=== PATIENT | male | born 1960 | race Caucasian/White ===

== ENCOUNTER 2017-07-20 15:03 | Emergency (ER) | payer OTHER ==
--- NOTE | 2017-07-20 15:07 | PDOC ---
History of Present Illness <Tevin Barboza - Last Filed: 07/20/17 16:10> - General History Source: Patient - History of Present Illness Initial Comments: 07/20/17 15:48 The patient is a 56 year old male, with a significant past medical history of asthma and hypertension, who presents to the emergency department with pain to his left ankle today. He denies numbness or tingling to the injured lower extremity. He denies chest pain, shortness of breath, headache and dizziness. He denies fever, chills, nausea, vomit, diarrhea and constipation. He denies dysuria, frequency, urgency and hematuria. Allergies: penicillins Past surgical history: left ankle ORIF <Urvashi Bowman - Last Filed: 07/20/17 16:14> - General Chief Complaint: Injury Stated Complaint: INJURED LEFT ANKLE Time Seen by Provider: 07/20/17 15:07 Past History - Past Medical History Asthma: Yes HTN: Yes - Suicide/Smoking/Psychosocial Hx Smoking History: Never smoked Have you smoked in the past 12 months: No Hx Alcohol Use: No Drug/Substance Use Hx: No Substance Use Type: Alcohol <Tevin Barboza - Last Filed: 07/20/17 16:10> <Urvashi Bowman - Last Filed: 07/20/17 16:14> - Past Medical History Allergies/Adverse Reactions: Allergies Allergy/AdvReac Type Severity Reaction Status Date / Time Penicillins Allergy Intermediate Rash Verified 07/20/17 15:04 Home Medications: Ambulatory Orders Losartan Potassium [Cozaar] 100 mg PO DAILY 11/10/15 Amlodipine Besylate 5 mg PO DAILY 07/20/17 Review of Systems - Review of Systems Able to Perform ROS?: Yes Comments:: 07/20/17 15:48 CONSTITUTIONAL: Absent: fever, chills, diaphoresis, generalized weakness, malaise, loss of appetite HEENT: Absent: rhinorrhea, nasal congestion, throat pain, throat swelling, difficulty swallowing, mouth swelling, ear pain, eye pain, visual Changes CARDIOVASCULAR: Absent: chest pain, syncope, palpitations, irregular heart rate, lightheadedness , peripheral edema RESPIRATORY: Absent: cough, shortness of breath, dyspnea with exertion, orthopnea, wheezing, stridor, hemoptysis GASTROINTESTINAL: Absent: abdominal pain, abdominal distension, nausea, vomiting, diarrhea, constipation, melena, hematochezia GENITOURINARY: Absent: dysuria, frequency, urgency, hesitancy, hematuria, flank pain, genital pain MUSCULOSKELETAL: (+) left ankle pain. no increased edema. Absent: myalgia, SKIN: Absent: rash, itching, pallor HEMATOLOGIC/IMMUNOLOGIC: Absent: easy bleeding, easy bruising, lymphadenopathy, frequent infections ENDOCRINE: Absent: unexplained weight gain, unexplained weight loss, heat intolerance, cold intolerance NEUROLOGIC: Absent: headache, focal weakness or paresthesia, dizziness, unsteady gait, seizure, mental status changes, bladder or bowel incontinence PSYCHIATRIC: Absent: anxiety, depression, suicidal or homicidal ideation, hallucinations <Urvashi Bowman - Last Filed: 07/20/17 16:14> *Physical Exam - Vital Signs Last Vital Signs Temp Pulse Resp BP Pulse Ox 98.5 F 96 H 16 141/98 98 07/20/17 15:04 07/20/17 15:04 07/20/17 15:04 07/20/17 15:04 07/20/17 15:04 - Physical Exam Comments: 07/20/17 15:53 GENERAL: Well developed, well nourished. Awake and alert. No acute distress. HEENT: Normocephalic, atraumatic. PERRLA, EOMI. No conjunctival pallor. Sclera are non- icteric. Moist mucous membranes. Oropharynx is clear. NECK: Supple. Full ROM. No JVD. Carotid pulses 2+ and symmetric, without bruits. No thyromegaly. No lymphadenopathy. CARDIOVASCULAR: Regular rate and rhythm. No murmurs, rubs, or gallops. Distal pulses are 2+ and symmetric. PULMONARY: No evidence of respiratory distress. Lungs clear to auscultation bilaterally. No wheezing, rales or rhonchi. ABDOMINAL: Soft. Non-tender. Non-distended. No rebound or guarding. No organomegaly. Normoactive bowel sounds. MUSCULOSKELETAL Normal range of motion at all joints. No bony deformities or tenderness. No CVA tenderness. EXTREMITIES: (+) LLE: dependent edema chronic and unchanged as per patient as the result of prior distal tib/fib fracture and implanted hardware. Pt complains of pain over the left medial ankle ligaments but not over the site of his prior injury. No distal numbness, tingling, or weakness to the toes. No distal sensory deficits. No point tenderness of malleoli or 5th metatarsal. Achilles tendon intact and strong. Plantar Flexion is strong. No cyanosis. No clubbing. No calf tenderness. SKIN: Warm and dry. Normal capillary refill. No rashes. No jaundice. NEUROLOGICAL: Alert, awake, appropriate. Cranial nerves 2-12 intact. No motor deficits in the upper extremities and lower extremities. Normoreflexic in the upper and lower extremities. Normal speech. Gait is normal without ataxia. PSYCHIATRIC: Cooperative. Good eye contact. Appropriate mood and affect. <Urvashi Bowman - Last Filed: 07/20/17 16:14> ED Treatment Course - RADIOLOGY Radiology Studies Ordered: 07/20/17 16:[address] Barboza Impression: Xray of left ankle demonstrates intact hardware without displacement , no evidence of acute fractures of the distal tibia, fibula, or ankle. <Urvashi Bowman - Last Filed: 07/20/17 16:14> Medical Decision Making - Medical Decision Making 07/20/17 16:10 X-ray: No fracture or hardware intact without displacement Stirrup splint applied. No distal numbness tingling or pain. Good toe movement. Ambulating adequately without assistance. Symptomatic treatment and orthopedic follow-up if pain or swelling persists. <Tevin Barboza - Last Filed: 07/20/17 16:10> *DC/Admit/Observation/Transfer - Discharge Dispostion Admit: No <Tevin Barboza - Last Filed: 07/20/17 16:10> - Attestations Scribe Attestion: 07/20/17 15:54 Documentation prepared by Urvashi Bowman, acting as nuclear medicine medical director for Tevin Melara MD <Urvashi Bowman - Last Filed: 07/20/17 16:14> Diagnosis at time of Disposition: Ankle sprain Qualifiers: Encounter type: initial encounter Involved ligament of ankle: unspecified ligament Laterality: left Qualified Code(s): S93.402A - Sprain of unspecified ligament of left ankle, initial encounter - Discharge Dispostion Disposition: HOME Condition at time of disposition: Improved - Referrals Referrals: Vincent Fraser MD [Staff Physician] - 1 week - Patient Instructions Printed Discharge Instructions: DI for Ankle Sprain Additional Instructions: Rest, ice, elevate, ankle support. Limited weightbearing to prevent muscle weakness. Recheck orthopedist in one week if pain or swelling persists. - Post Discharge Activity Forms/Work/School Notes: Back to Work
[2017-07-20 15:24] VITALS: BP 141/98; PULSE 96; TEMP 98.5; BMI 41.3
== END 2017-07-20 15:51 | disposition home or self-care (01) ==
LOC: FER 15:03
PROC: 2W3RX1Z Immobilization of Left Lower Leg using Splint (ICD-10-PCS; principal; 2017-07-20)
DX: S93.402A Sprain of unspecified ligament of left ankle, initial encounter (principal); X58.XXXA Exposure to other specified factors, initial encounter; Y93.89 Activity, other specified; Y92.9 Unspecified place or not applicable; J45.909 Unspecified asthma, uncomplicated; I10 Essential (primary) hypertension
CPT/HCPCS: 73610-TC-LT; 99282-25

== ENCOUNTER 2018-08-06 17:37 | Emergency (ER) | payer OTHER ==
[2018-08-06 17:44] VITALS: BMI 37.7
--- NOTE | 2018-08-06 18:17 | PDOC ---
History of Present Illness - General Chief Complaint: Blood Pressure Problem Stated Complaint: BLOOD PRESSURE PROBLEM - History of Present Illness Initial Comments: 08/06/18 18:10 Pt. is a 57 M w/ PMHx of HTN presents to the ED for "pounding headache" and high blood pressure. Pt. states he has had a pounding headache for the last 3 hours. Pt. states that he got into an argument with someone and that made his headache worse so he checked his BP at home and found it to be 185/115. Pt. states he took some old BP medications( Losartan 100mg x 1 and Amlodipine 5 mg x 1). Pt. recently lost 65 lbs. and was no longer hypertensive so he was instructed to discontinue his BP medications around 2 weeks ago. Pt. states he was never this hypertensive even prior to the weight loss and before being on medications, his BP was always 130s/90s. Pt. endorses a pounding, constant, throbbing headaches that he feels right behind the eyes. Pt. endorses diffuse abdominal pain and nausea since onset of headache. Pt. endorsed chronic swelling of the lower extremities especially his left leg, on which he had an ORIF performed many years ago. Pt. denies any other symptoms including chest pain, shortness of breath, changes in bowel or urinary habits including pain on urination or defecation, increased or decreased frequency of urination or defecation, hematuria or hematochezia. Tylenol 1,000mg and Head CT ordered to manage pain and r/o intracranial hemorrhage. 08/06/18 19:06 Case signed off to Dr. Amaya. Timing/Duration: 1-3 hours Severity: moderate Associated Symptoms: reports: fever/chills (chills no fever ), headaches, nausea /vomiting. denies: chest pain, cough, diaphoresis, shortness of breath, syncope , weakness Aspirin Received prior to arrival: Yes: no aspirin today Beta Therese Contraindications(Core Measure): Yes: Not Prescribed Past History - Travel Traveled outside of the country in the last 30 days: No Close contact w/someone who was outside of country & ill: No - Past Medical History Allergies/Adverse Reactions: Allergies Allergy/AdvReac Type Severity Reaction Status Date / Time Penicillins Allergy Intermediate Rash Verified 08/06/18 17:44 Home Medications: Ambulatory Orders Losartan Potassium [Cozaar] 100 mg PO DAILY 11/10/15 Amlodipine Besylate 5 mg PO DAILY 07/20/17 Asthma: No (Allergy to cats ) Cardiac Disorders: No Hx Myocardial Infarction: No CVA: No COPD: No CHF: No DVT: No HTN: Yes (taken off meds by pmd) Hypercholesterolemia: No - Surgical History Orthopedic Surgery: Yes (ORIF of left tibia ) - Suicide/Smoking/Psychosocial Hx Smoking History: Never smoked Have you smoked in the past 12 months: No Hx Alcohol Use: No Drug/Substance Use Hx: No Substance Use Type: Alcohol Review of Systems - Review of Systems Able to Perform ROS?: Yes Is the patient limited Hebrew proficient: No Constitutional: No: Symptoms Reported HEENTM: No: Symptoms Reported Respiratory: No: Symptoms reported Cardiac (ROS): No: Symptoms Reported ABD/GI: Yes: Symptoms Reported, Nausea : No: Symptoms Reported, Dysuria, Discharge, Frequency Integumentary: No: Symptoms Reported Neurological: Yes: Headache (frontal lobe, feels behind eyes ). No: Numbness, Weakness, Unsteady Gait, Dizziness Psychiatric: Yes: Stressors Endocrine: No: Symptoms Reported Hematologic/Lymphatic: No: Symptoms Reported *Physical Exam - Vital Signs Last Vital Signs Temp Pulse Resp BP Pulse Ox 98.4 F 76 18 161/113 H 95 08/06/18 17:41 08/06/18 17:41 08/06/18 17:41 08/06/18 17:41 08/06/18 17:41 - Physical Exam General Appearance: Yes: Nourished, Appropriately Dressed, Apparent Distress, Mild Distress, Obese HEENT: positive: EOMI, LEON, Normal ENT Inspection, Normal Voice, Symmetrical, Pharynx Normal, Hearing Grossly Normal. negative: Sinus Tenderness Neck: positive: Trachea midline, Normal Thyroid, Supple. negative: Tender, Carotid bruit, Thyromegaly Respiratory/Chest: positive: Lungs Clear, Normal Breath Sounds. negative: Chest Tender, Respiratory Distress, Accessory Muscle Use, Rapid RR, Crackles, Rales, Wheezing Cardiovascular: positive: Regular Rhythm, Regular Rate, S1, S2, Edema. negative : JVD, Murmur, Tachycardia Vascular Pulses: Dorsalis-Pedis (R): 2+ (RADIAL), Doralis-Pedis (L): 2+ (RADIAL ) Gastrointestinal/Abdominal: positive: Normal Bowel Sounds, Soft, Protuberent. negative: Tender, Distended, Guarding, Rebound, Tenderness Male Genitalia: negative: CVAT Rectal Exam: positive: deferred Musculoskeletal: positive: Normal Inspection. negative: CVA Tenderness Extremity: positive: Normal Capillary Refill, Pelvis Stable, Pedal Edema, Swelling. negative: Tender, Calf Tenderness, Erythema, Inflammation Integumentary: positive: Normal Color, Dry, Warm Neurologic: positive: Fully Oriented, Alert, Normal Response, Motor Strength 5/5 , Respond to painful stimul Moderate Sedation - Procedure Monitoring Vital Signs: Procedure Monitoring Vital Signs Temperature 98.4 F 08/06/18 17:41 Pulse Rate 76 08/06/18 17:41 Respiratory Rate 18 08/06/18 17:41 Blood Pressure 161/113 H 08/06/18 17:41 O2 Sat by Pulse Oximetry (%) 95 08/06/18 17:41 *DC/Admit/Observation/Transfer Diagnosis at time of Disposition: Hypertension Qualifiers: Hypertension type: unspecified Qualified Code(s): I10 - Essential (primary) hypertension Headache Qualifiers: Headache type: unspecified Headache chronicity pattern: acute headache Intractability: not intractable Qualified Code(s): R51 - Headache - Discharge Dispostion Condition at time of disposition: Improved - Referrals - Patient Instructions - Post Discharge Activity
[2018-08-06] MEDS ORDERED: ACETAMINOPHEN 500 MG TABLET (FP) PO ONE (18:18)
[2018-08-06] MEDS ORDERED: ACETAMINOPHEN 325 MG TABLET (FP) ONE (18:25)
--- NOTE | 2018-08-06 18:46 | PDOC ---
Attending Attestation - [facility] HPI: 08/06/18 18:46 The patient is a 57 year old male with a past medical history of HTN here today for evaluation of high blood pressure and headache. The patient reports that he woke up this morning with a headache and describes it as constant, pounding, and localized to the frontal lobe behind the eyes. Patient reports checking his blood pressure after getting into an argument with someone and notes that it was 185/115. He notes taking his blood pressure medication which he had previously stopped taking due to weight loss. He notes having chills, lower left extremity edema (which he attributes to an old ORIF surgery), abdominal pain, and nausea. Patient denies lightheadedness. Denies fever. Denies chest pain, shortness of breath. Denies vomiting, diarrhea. Allergies: penicillin, cats Social history: Patient denies tobacco and drug use. Reports being a social drinker. Surgical history: ORIF lower left extremity PCP: none reported - Physicial Exam PE: 08/06/18 18:47 GENERAL: Well developed, well nourished. Awake and alert. No acute distress. HEENT: Normocephalic, atraumatic. PERRLA, EOMI. No conjunctival pallor. Sclera are non- icteric. Moist mucous membranes. Oropharynx is clear. NECK: Supple. Full ROM. No JVD. Carotid pulses 2+ and symmetric, without bruits. No thyromegaly. No lymphadenopathy. CARDIOVASCULAR: Regular rate and rhythm. No murmurs, rubs, or gallops. Distal pulses are 2+ and symmetric. PULMONARY: No evidence of respiratory distress. Lungs clear to auscultation bilaterally. No wheezing, rales or rhonchi. ABDOMINAL: Soft. Non-tender. Non-distended. No rebound or guarding. No organomegaly. Normoactive bowel sounds. MUSCULOSKELETAL Normal range of motion at all joints. No bony deformities or tenderness. No CVA tenderness. EXTREMITIES: No cyanosis. No clubbing. No edema. No calf tenderness. SKIN: Warm and dry. Normal capillary refill. No rashes. No jaundice. NEUROLOGICAL: Alert, awake, appropriate. Cranial nerves 2-12 intact. No deficits to light touch and temperature in face, upper extremities and lower extremities. No motor deficits in the in face, upper extremities and lower extremities. Normoreflexic in the upper and lower extremities. Normal speech. Toes are down- going bilaterally. Gait is normal without ataxia. PSYCHIATRIC: Cooperative. Good eye contact. Appropriate mood and affect. - Medical Decision Making 08/06/18 18:47 Documentation prepared by JASPER Hanson, acting as medical laboratory technicians for Amy Shane MD. <Prosper Win - Last Filed: 08/06/18 18:46> - Resident Resident Name: Adis Hilton - ED Attending Attestation I have performed the following: I have examined & evaluated the patient, The case was reviewed & discussed with the resident, I agree w/resident's findings & plan, Exceptions are as noted - Medical Decision Making 08/06/18 19:23 57-year-old male presents because of frontal headache and increased blood pressure. He lost 65 pounds and his physician has curtailed his high blood pressure medications. Priors that his to reticulocyte and Norvasc. He denies any chest pain, shortness of breath, acute visual changes, diplopia or field cuts. CAT scan of the head was negative for any acute intracranial pathology, no bleed , no infarct Patient's headache is aggravated by the fact he's had to emotional confrontations today 08/06/18 23:59 he has no focal neuro deficits blood pressure came down with meds and his headache resolved pt discharged home w instructions to see his PCP for further eval of HTN <Amy Shane - Last Filed: 08/07/18 00:03>
--- NOTE | 2018-08-06 19:11 | PDOC ---
*Physical Exam - Vital Signs Last Vital Signs Temp Pulse Resp BP Pulse Ox 98.4 F 76 18 161/113 H 95 08/06/18 17:41 08/06/18 17:41 08/06/18 17:41 08/06/18 17:41 08/06/18 17:41 ED Treatment Course - Medications Given in the ED: ED Medications Discontinued Medications Generic Name Dose Route Start Last Admin Trade Name aMrgret PRN Reason Stop Dose Admin Acetaminophen 1,000 mg 08/06/18 18:18 08/06/18 18:29 Tylenol - PO 08/06/18 18:19 1,000 mg ONCE ONE Administration Medical Decision Making - Medical Decision Making 08/06/18 19:09 Patient signed out by resident Dr. Hilton In short this patient with headache and elevated blood pressure decreased with amlodipine and losartan. ED Course: Patient with negative CT head plan to recheck bp, if maintained will discharge. advise to take amlodipine 5 until can be seen by pcp for htn management 08/06/18 19:30 repeat bp 158/100 *DC/Admit/Observation/Transfer Diagnosis at time of Disposition: Hypertension Qualifiers: Hypertension type: unspecified Qualified Code(s): I10 - Essential (primary) hypertension Headache Qualifiers: Headache type: unspecified Headache chronicity pattern: acute headache Intractability: not intractable Qualified Code(s): R51 - Headache - Discharge Dispostion Disposition: HOME Condition at time of disposition: Fair Decision to Admit order: No - Referrals - Patient Instructions Printed Discharge Instructions: DI for High Blood Pressure, DI for Headache Additional Instructions: You were seen in the ED for complaints of headache and a previously elevated blood pressure. In the ED you were evaluated with imaging and blood pressure monitoring. Your results did not show significant findings and your blood pressure improved. There does not appear to be an acute need for immediate hospitalization. You are advised to follow up with your Primary Care Physician within 1 week. Take your home amlodipine 5mg until you can see your Family Doctor for appropriate bp management. Return to the ED immediately if you experience worsening headache, loss of consciousness, elevated blood pressure, chest pain, shortness of breath, neck pain or stiffness or fever. - Post Discharge Activity
[2018-08-06 19:40] VITALS: BP 146/101; PULSE 89; TEMP 98.6
== END 2018-08-06 19:43 | disposition home or self-care (01) ==
LOC: JER 17:37
DX: I10 Essential (primary) hypertension (principal); Z91.048 Other nonmedicinal substance allergy status; Z88.0 Allergy status to penicillin
CPT/HCPCS: 70450-TC; 99281-25

== ENCOUNTER 2018-08-19 19:38 | Emergency (ER) | payer OTHER ==
[2018-08-19 19:45] VITALS: BP 145/92; PULSE 97; TEMP 98.7; BMI 37.5
== END 2018-08-19 19:48 | disposition left against medical advice (07) ==
LOC: JER 19:38
DX: Z53.21 Procedure and treatment not carried out due to patient leaving prior to being seen by health care provider (principal)
CPT/HCPCS: 99281-25

== ENCOUNTER 2021-03-22 17:12 | Emergency (ER) | payer OTHER ==
[2021-03-22 17:30] VITALS: TEMP 99.2; BMI 38.3
[2021-03-22] MEDS ORDERED: FAMOTIDINE 20 MG/50 ML IVPB 20 MG/50 ML MG IVPB ONE ×2 (17:49→17:50)
[2021-03-22] MEDS ORDERED: SODIUM CHLORIDE 0.9% 1000 ML INFUS.BAG IV ONE (17:50)
[2021-03-22 18:00] LABS: BASO % 1.6 % (0-2.0); EOS % 6.4 % (0-4.5); HEMATOCRIT 46.2 % (35.4-49); HEMOGLOBIN 15.4 GM/dl (11.7-16.9); LYMPH % 24.6 % (8-40); MCH 27.5 pg (25.7-33.7); MCHC 33.5 g/dl (32.0-35.9); MEAN CELL VOLUME 82.4 fl (80-96); MEAN PLT VOLUME 7.6 fl (7.5-11.1); MONO % 10.1 % (3.8-10.2); NEUT % 57.3 % (42.8-82.8); PLATELET COUNT 220 10^3/uL (134-434); RBC 5.61 M/mm3 (4.00-5.60); RDW 12.6 % (11.9-15.9); WHITE BLOOD COUNT 5.5 K/mm3 (4.0-10.8)
[2021-03-22 18:07] LABS: ALBUMIN 4.3 g/dl (3.4-5.0); BILIRUBIN,TOTAL 0.4 mg/dl (0.2-1); CALCIUM 8.8 mg/dl (8.5-10); CREATININE 1.3 mg/dl (0.55-1.3); TOT PROT 6.9 g/dl (6.4-8.2)
[2021-03-22 18:25] LABS: EPITHELIAL CELLS RARE /hpf
[2021-03-22 18:27] VITALS: BP 134/85; PULSE 80
[2021-03-22 19:07] LABS: LIPASE 128 U/L (73-393)
== END 2021-03-22 19:50 | disposition home or self-care (01) ==
LOC: FER 17:12
PROC: 3E033GC Introduction of Other Therapeutic Substance into Peripheral Vein, Percutaneous Approach (ICD-10-PCS; principal; 2021-03-22)
DX: R10.12 Left upper quadrant pain (principal); R10.32 Left lower quadrant pain; R80.9 Proteinuria, unspecified
CPT/HCPCS: 36415; 74177-TC; 80053; 81003; 81015; 82550; 82553; 83605; 83690; 84484; 85025; 87086; 93005; 99285-25

== ENCOUNTER 2021-03-23 06:24 | Emergency (ER) | payer OTHER ==
[2021-03-23 06:33] VITALS: TEMP 97.8; BMI 38.3
[2021-03-23 09:03] VITALS: BP 151/106; PULSE 72
== END 2021-03-23 10:42 | disposition home or self-care (01) ==
LOC: FER 06:24
DX: M79.605 Pain in left leg (principal); I83.899 Varicose veins of unspecified lower extremity with other complications
CPT/HCPCS: 71045-TC-FY; 93005; 93971-TC; 99284-25

== ENCOUNTER 2023-05-03 08:20 | Emergency (ER) | payer OTHER ==
[2023-05-03 08:29] VITALS: RESP 16; TEMP 98.7; BMI 41.2
[2023-05-03 09:40] LABS: HEMATOCRIT 45.9 % (35.4-49); HEMOGLOBIN 15.3 G/dL (11.7-16.9); MCH 27.6 pg (25.7-33.7); MCHC 33.4 g/dl (32.0-35.9); MEAN CELL VOLUME 82.7 fl (80-96); MEAN PLT VOLUME 7.6 fl (7.5-11.1); PLATELET COUNT 172.8 10^3/uL (134-434); RBC 5.55 10^6/uL (4.00-5.60); RDW 14.6 % (11.9-15.9); WHITE BLOOD COUNT 4.1 10^3/uL (4.0-10.8)
[2023-05-03 09:51] LABS: ALBUMIN 4.2 g/dl (3.4-5.0); BILIRUBIN,TOTAL 0.6 mg/dl (0.2-1); BLOOD UREA NITROGEN 21.1 mg/dl (7-18); CALCIUM 8.8 mg/dl (8.5-10.1); CREATININE 1.2 mg/dl (0.6-1.3); POTASSIUM 4.5 mmol/L (3.5-5.1); SGPT/ALT 28.4 U/L (7-52); TOT PROT 6.2 g/dl (6.4-8.2)
[2023-05-03 10:04] VITALS: BP 146/99; PULSE 86
== END 2023-05-03 10:23 | disposition home or self-care (01) ==
LOC: FER 08:20
DX: R53.83 Other fatigue (principal); I10 Essential (primary) hypertension; Z20.822 Contact with and (suspected) exposure to COVID-19
CPT/HCPCS: 0241U-QW; 36415; 80053; 84484; 85027; 93005; 99284-25

== ENCOUNTER 2023-09-19 00:09 | Emergency (ER) | payer OTHER ==
[2023-09-19 00:14] VITALS: BP 154/102; PULSE 100; RESP 18; TEMP 98.2; BMI 39.5
== END 2023-09-19 01:48 | disposition home or self-care (01) ==
LOC: FER 00:09
DX: J06.9 Acute upper respiratory infection, unspecified (principal); B34.9 Viral infection, unspecified; R05.9 Cough, unspecified; R09.81 Nasal congestion; Z20.822 Contact with and (suspected) exposure to COVID-19
CPT/HCPCS: 0241U-QW; 71045-TC-FY; 99284-25

== ENCOUNTER 2023-10-02 18:50 | Emergency (ER) | payer OTHER ==
[2023-10-02 18:57] VITALS: BP 121/83; TEMP 99; BMI 40.7
[2023-10-02 19:41] LABS: HEMATOCRIT 42.9 % (35.4-49); HEMOGLOBIN 14.7 G/dL (11.7-16.9); MCH 28.4 pg (25.7-33.7); MCHC 34.3 g/dl (32.0-35.9); MEAN CELL VOLUME 82.8 fl (80-96); MEAN PLT VOLUME 7.3 fl (7.5-11.1); PLATELET COUNT 180.4 10^3/uL (134-434); RBC 5.18 10^6/uL (4.00-5.60); RDW 14.6 % (11.9-15.9); WHITE BLOOD COUNT 7.4 10^3/uL (4.0-10.8)
[2023-10-02] MEDS: SODIUM CHLORIDE 1,000 ML IV ONE (19:58)
[2023-10-02 20:08] LABS: ALBUMIN 4.3 g/dl (3.4-5.0); BILIRUBIN,TOTAL 0.3 mg/dl (0.2-1); CALCIUM 9.2 mg/dl (8.5-10.1); CREATININE 1.8 mg/dl (0.6-1.3); PHOSPHOROUS 3.9 (2.5-4.9); POTASSIUM 4.3 mmol/L (3.5-5.1); TOT PROT 6.5 g/dl (6.4-8.2)
[2023-10-02] MEDS ORDERED: MAG HYDROX/AL HYDROX/SIMETH 30 ML UNIT-DOSE CUP ONE (20:10)
[2023-10-02] MEDS: MAG HYDROX/AL HYDROX/SIMETH 30 ML UNIT-DOSE CUP PO ONE (20:11)
[2023-10-02 21:24] VITALS: PULSE 92; RESP 18
== END 2023-10-02 21:32 | disposition home or self-care (01) ==
LOC: FER 18:50
PROC: 3E0337Z Introduction of Electrolytic and Water Balance Substance into Peripheral Vein, Percutaneous Approach (ICD-10-PCS; principal; 2023-10-02)
DX: S00.03XA Contusion of scalp, initial encounter (principal); R55 Syncope and collapse; R10.84 Generalized abdominal pain; W01.198A Fall on same level from slipping, tripping and stumbling with subsequent striking against other object, initial encounter
CPT/HCPCS: 36415; 70450-TC; 71101-TC-RT-FY; 80053; 83735; 84100; 85027; 93005; 99285-25

== ENCOUNTER 2023-10-05 05:04 | Emergency (ER) | payer OTHER ==
[2023-10-05 05:13] VITALS: PULSE 87; RESP 20; TEMP 98.3; BMI 39.5
[2023-10-05] MEDS ORDERED: KETOROLAC TROMETHAMINE 60 MG/2 ML VIAL ONE (05:14)
[2023-10-05] MEDS: KETOROLAC TROMETHAMINE 60 MG/2 ML VIAL IM ONE (05:18)
[2023-10-05 07:28] VITALS: BP 148/108
== END 2023-10-05 07:28 | disposition home or self-care (01) ==
LOC: FER 05:04
PROC: 3E0233Z Introduction of Anti-inflammatory into Muscle, Percutaneous Approach (ICD-10-PCS; principal; 2023-10-05)
DX: R07.81 Pleurodynia (principal); R10.11 Right upper quadrant pain; W08.XXXA Fall from other furniture, initial encounter
CPT/HCPCS: 71250-TC; 74150-TC; 99284-25

== ENCOUNTER 2024-03-05 03:42 | Emergency (ER) | payer OTHER ==
[2024-03-05 03:49] VITALS: BMI 41.3
[2024-03-05] MEDS ORDERED: KETOROLAC TROMETHAMINE 30 MG/1 ML VIAL ONE (04:23)
[2024-03-05] MEDS ORDERED: METHOCARBAMOL 500 MG TABLET ONE (04:23)
[2024-03-05] MEDS: KETOROLAC TROMETHAMINE 30 MG/1 ML VIAL IVPUSH ONE (04:28)
[2024-03-05] MEDS: METHOCARBAMOL 500 MG TABLET PO ONE (04:29)
[2024-03-05 05:35] LABS: BASO % 0.7 % (0-2.0); EOS % 3.6 % (0-4.5); HEMATOCRIT 42.8 % (35.4-49); HEMOGLOBIN 14.5 GM/dL (11.7-16.9); LYMPH % 23.7 % (8-40); MCH 27.1 pg (25.7-33.7); MCHC 33.9 g/dl (32.0-35.9); MEAN CELL VOLUME 80.1 fl (80-96); MEAN PLT VOLUME 7.2 fl (7.5-11.1); PLATELET COUNT 225 10^3/uL (134-434); RBC 5.34 M/mm3 (4.00-5.60); RDW 13.8 % (11.9-15.9); WHITE BLOOD COUNT 6.7 K/mm3 (4.0-10.0)
[2024-03-05 05:37] VITALS: BP 109/77; PULSE 85; RESP 16; TEMP 98.4
[2024-03-05 06:13] LABS: ALBUMIN 4.1 g/dl (3.4-5.0); ALK PHOS 86 U/L (45-117); ANION GAP 4 mmol/L (4-13); BILIRUBIN,TOTAL 0.4 mg/dL (0.2-1); BLOOD UREA NITROGEN 29.1 mg/dL (7-18); CALCIUM 8.8 mg/dL (8.5-10.1); CHLORIDE 105 mmol/L (98-107); CO2 29 mmol/L (21-32); CREATININE 1.5 mg/dL (0.55-1.3); GLUCOSE,RANDOM 112 mg/dL (74-106); POTASSIUM 4.3 mmol/L (3.5-5.1); SGOT/AST 24 U/L (15-37); SGPT/ALT 38 U/L (13-61); SODIUM 138 mmol/L (136-145); TOT PROT 6.7 g/dl (6.4-8.2)
[2024-03-05 06:16] LABS: ERYTHROCYTE SEDIMENTATION RATE 5 mm/hr (0-20)
== END 2024-03-05 07:33 | disposition home or self-care (01) ==
LOC: FER 03:42
PROC: 3E0333Z Introduction of Anti-inflammatory into Peripheral Vein, Percutaneous Approach (ICD-10-PCS; principal; 2024-03-05)
DX: M54.50 Low back pain, unspecified (principal); M48.061 Spinal stenosis, lumbar region without neurogenic claudication
CPT/HCPCS: 36415; 72131-TC; 80053; 85025; 85651; 86140; 99284-25

== ENCOUNTER 2024-07-24 08:08 | Emergency (ER) | payer OTHER ==
[2024-07-24 08:17] VITALS: BP 153/95; PULSE 93; RESP 20; BMI 40.7
[2024-07-24] MEDS ORDERED: ACETAMINOPHEN 500 MG TABLET (FP) ONE (08:36)
[2024-07-24] MEDS: ACETAMINOPHEN 500 MG TABLET (FP) PO ONE (08:40)
[2024-07-24 10:05] VITALS: TEMP 100.8
[2024-07-24 10:40] LABS: EPITHELIAL CELLS 0-5 /hpf
== END 2024-07-24 10:15 | disposition home or self-care (01) ==
LOC: FER 08:08
DX: R50.9 Fever, unspecified (principal); B34.9 Viral infection, unspecified; M79.10 Myalgia, unspecified site; M54.50 Low back pain, unspecified; G89.29 Other chronic pain; Z20.822 Contact with and (suspected) exposure to COVID-19
CPT/HCPCS: 0241U-QW; 81003; 81015; 87086; 99283-25

== ENCOUNTER 2025-02-13 17:49 | Emergency (ER) | payer BC, OTHER ==
[2025-02-13 17:56] VITALS: RESP 18; TEMP 98.8; BMI 37.8
[2025-02-13 18:41] VITALS: PULSE 83
[2025-02-13 19:33] LABS: ABSOLUTE IMMATURE GRANULOCYTES 0.01 x10^3/uL (0.0-0.031); BASOPHILS # 0.03 x10^3/uL (0.01-0.08); EOSINOPHIL % 4.0 % (0.8-7.0); EOSINOPHILS # 0.26 x10^3/uL (0.04-0.54); MCHC 32.8 g/dl (32.3-36.5); MEAN CELL VOLUME 81.9 fl (79.0-92.2); MEAN PLT VOLUME 8.7 fl (9.4-12.4); MONOCYTE # 0.66 x10^3/uL (0.30-0.82); MONOCYTE % 10.2 % (5.3-12.2); RDW 12.8 % (12.2-16.4)
[2025-02-13 19:45] LABS: INR 1.0 (0.83-1.09); PROTHROMBIN TIME (PATIENT) 11.1 SEC (9.7-13.0)
[2025-02-13 19:56] LABS: ALK PHOS 53.0 U/L (45-117); CO2 29.0 mmol/L (21-32); CREATININE 1.4 mg/dl (0.6-1.3); GLUCOSE,RANDOM 94.0 mg/dl (74-106); SGOT/AST 19.0 U/L (15-37); SGPT/ALT 18.0 U/L (7-52); TOT PROT 6.2 g/dl (6.4-8.2)
[2025-02-13 19:57] LABS: ACTIVATED PTT 30.2 SECONDS (25.2-36.5)
[2025-02-13] MEDS ORDERED: LABETALOL HCL 100 MG TABLET (FP) ONE (20:54)
[2025-02-13] MEDS: LABETALOL HCL 200 MG TABLET (FP) PO ONE (20:55)
[2025-02-13 21:59] VITALS: BP 160/100
== END 2025-02-13 22:16 | disposition home or self-care (01) ==
LOC: FER 17:49
DX: J01.31 Acute recurrent sphenoidal sinusitis (principal); I10 Essential (primary) hypertension; R51.9 Headache, unspecified; R09.81 Nasal congestion; Z91.148 Patient's other noncompliance with medication regimen for other reason; T46.5X6A Underdosing of other antihypertensive drugs, initial encounter
CPT/HCPCS: 36415; 70450-TC; 71045-TC-FY; 80053; 83735; 84484; 85025; 85610; 85730; 93005; 99285-25